=== PATIENT | female | born 1960 | race African-American/Black ===

== ENCOUNTER 2021-02-26 21:13 | Emergency (ER) | payer OTHER ==
[~2021-02-26] VITALS: Ht 162.6 cm; Wt 61.2 kg
[2021-02-26 22:07] LABS: Basophils # (auto) 0 10 ^3/uL (0-0.2); Basophils % (auto) 0.7 % (0.0-2.0); Eosinophils # (auto) 0.1 10 ^3/uL (0-0.8); Eosinophils % (auto) 1.3 % (0.0-7.0); Hematocrit 36.3 % (36.0-46.0); Hemoglobin 12.6 g/dL (12.2-16.2); Lymphocytes # (auto) 2.1 10 ^3/uL (0.4-5.4); Lymphocytes % (auto) 32.4 % (10.0-50.0); Mean Corpuscular Hemoglobin 32.2 pg (28.0-32.0); Mean Corpuscular Hgb Conc. 34.6 g/dL (32.0-36.0); Monocytes # (auto) 0.6 10 ^3/uL (0-1.3); Monocytes % (auto) 8.6 % (0.0-12.0); Neutrophils # (auto) 3.8 10 ^3/uL (1.6-8.6); Nucleated Red Blood Cells % 0.2 %; Platelet Count (auto) 403 10^3/uL (140-450); Red Blood Cells 3.91 10^6/uL (4.0-5.20); Red Cell Distribution Width 13.4 % (11.8-14.3); White Blood Cell 6.6 10^3/uL (4.4-10.8)
[2021-02-26 22:22] LABS: Chloride 106 mmol/L (98-107); Potassium 3.8 mmol/L (3.5-5.1); Sodium 137 mmol/L (136-145)
[2021-02-26 22:27] LABS: Albumin 3.4 g/dL (3.4-5.0); Anion Gap 5 (5-15); BUN/Creatinine Ratio 15.6; Blood Urea Nitrogen 12 mg/dL (7-18); Calcium 9.2 mg/dL (8.5-10.1); Carbon Dioxide 26 mmol/L (21-32); GFR African American 98 mL/min; GFR Non-African American 81 mL/min; Glucose 106 mg/dL (74-106)
[2021-02-26 22:42] LABS: Alanine Aminotransferase 27 U/L (13-56); Alkaline Phosphatase 53 U/L (45-117); Aspartate Aminotransferase 19 U/L (15-37); Bilirubin, Total 0.3 mg/dL (0.2-1.0); Total Protein 7.7 g/dL (6.4-8.2)
[2021-02-27 03:48] VITALS: BP 140/71
== END 2021-02-27 04:35 | disposition home or self-care (01) ==
LOC: EDBD 21:13 → ER 21:19
DX: S92.122A Displaced fracture of body of left talus, initial encounter for closed fracture (principal); R55 Syncope and collapse; Z20.822 Contact with and (suspected) exposure to COVID-19; X50.1XXA Overexertion from prolonged static or awkward postures, initial encounter; Y93.89 Activity, other specified; Y92.89 Other specified places as the place of occurrence of the external cause; Y99.8 Other external cause status
CPT/HCPCS: 29515; 36415; 71045; 73610; 80053; 83735; 83880; 84484; 85025; 87426; 93005

== ENCOUNTER 2024-01-19 11:06 | Inpatient (IN) | payer OTHER ==
[2024-01-19] VITALS (18 sets, daily range): BP systolic 120–166; BP diastolic 62–88; PULSE 52–106; RESP 12–20; TEMP 97.8–98.4; O2SAT 90–99
[~2024-01-19] VITALS: Ht 167.6 cm; Wt 66.5 kg
[2024-01-19] MEDS: MORPHINE SULFATE 4 MG/ML SYR/VIAL IV ONE (11:30)
[2024-01-19] MEDS: ONDANSETRON HCL 4 MG/2 ML VIAL IV ONE ×2 (11:30→17:38)
[2024-01-19] MEDS: LIDOCAINE 2%HCL (LOCAL ANESTH.) INJ 20ML MDV ONE (11:31)
[2024-01-19] MEDS: IODIXANOL 320MG/ML 100ML BTL IV ONE ×2 (11:31→12:07)
[2024-01-19] MEDS: MORPHINE SULFATE 4 MG/ML SYR/VIAL ONE (11:32)
[2024-01-19] MEDS: ONDANSETRON HCL 4 MG/2 ML VIAL ONE (11:32)
[2024-01-19] MEDS: ASPirin 81 mg TAB PO ONE (11:45)
[2024-01-19] MEDS: VERAPAMIL 2.5MG/ML INJ 2ML VIAL IV ONE (11:47)
[2024-01-19] MEDS: HEPARIN SODIUM (PORCINE) 5000 UNITS/ML 1ML VIAL ONE (11:47)
[2024-01-19] MEDS: ANGIOMAX 250 MG VIAL IV ONE (11:47)
[2024-01-19] MEDS: fentaNYL CITRATE 100 MCG/2 ML VL ONE (11:48)
[2024-01-19] MEDS: SODIUM CHL 0.9% 50 ML ONE (11:48)
[2024-01-19] MEDS: NITROGLYCERIN 50MG/250ML 250 ML IV ONE (11:48)
[2024-01-19] MEDS: MIDAZOLAM HCL 2MG/2ML 2ml VIAL (1mg/ml) ONE (11:48)
[2024-01-19 12:10] LABS: Basophils # (auto) 0.1 10 ^3/uL (0-0.2); Eosinophils # (auto) 0.1 10 ^3/uL (0-0.8); Hemoglobin 13.3 g/dL (12.2-16.2); Lymphocytes # (auto) 3.1 10 ^3/uL (0.4-5.4); Mean Corpuscular Hgb Conc. 33.6 g/dL (32.0-36.0); Monocytes # (auto) 0.7 10 ^3/uL (0-1.3)
[2024-01-19] MEDS: TICAGRELOR 90 MG TAB ONE (12:12)
[2024-01-19 12:16] LABS: Eosinophils % (auto) 0.8 % (0.0-7.0); Hematocrit 39.7 % (36.0-46.0); Lymphocytes % (auto) 29.8 % (10.0-50.0); Mean Corpuscular Hemoglobin 31.2 pg (28.0-32.0); Mean Corpuscular Volume 93.1 fL (80.0-100.0); Monocytes % (auto) 6.9 % (0.0-12.0); Neutrophils # (auto) 6.3 10 ^3/uL (1.6-8.6); Neutrophils % (auto) 61.5 % (37.0-80.0); Red Blood Cells 4.26 10^6/uL (4.0-5.20); Red Cell Distribution Width 13.3 % (11.8-14.3); White Blood Cell 10.3 10^3/uL (4.4-10.8)
[2024-01-19 12:22] LABS: INR 1.05 (0.9-1.15); Partial Thromboplastin Time 24.5 SEC (24.5-34.5); Prothrombin Time 11.1 sec (9.3-11.8)
[2024-01-19 12:26] LABS: Triglycerides 124 mg/dL (< 150)
[2024-01-19 12:27] LABS: LDL Cholesterol 130 mg/dL (< 100)
[2024-01-19 12:28] LABS: Cholesterol 211 mg/dL (< 200); HDL Cholesterol 55 mg/dL (40-59)
[2024-01-19] MEDS: NITROGLYCERIN 0.4 MG SL TAB SL PRN (13:15)
[2024-01-19] MEDS: NITROGLYCERIN 0.4 MG SL TAB SL ONE (13:25)
[2024-01-19] MEDS: MORPHINE SULFATE INJ 2 MG/ml SYRG ONE (13:28)
[2024-01-19] MEDS: MORPHINE SULFATE 4 MG/ML SYR/VIAL IV PRN ×2 (13:38→13:45)
[2024-01-19 15:51] LABS: Alanine Aminotransferase 42 U/L (7-40); Albumin 4.2 g/dL (3.2-4.8); Alkaline Phosphatase 65 U/L (46-116); Anion Gap 9 (5-15); Aspartate Aminotransferase 42 U/L (13-40); BUN/Creatinine Ratio 11.4 (10.0-20.0); Bilirubin, Total 0.4 mg/dL (0.2-1.0); Blood Urea Nitrogen 10 mg/dL (9-23); Calcium 10.5 mg/dL (8.7-10.4); Carbon Dioxide 21 mmol/L (20-30); Chloride 109 mmol/L (98-107); Glucose 150 mg/dL (74-106); Magnesium 1.9 mg/dL (1.6-2.6); Potassium 3.9 mmol/L (3.5-5.1); Sodium 139 mmol/L (136-145); Total Protein 7.4 g/dL (5.7-8.2)
[2024-01-19] MEDS: hydrALAZINE HCL 20 MG/ML VL IV PRN (18:58)
[2024-01-19] MEDS: SODIUM CHLORIDE 0.9% 1,000 ML IV SCH (20:32)
[2024-01-19] MEDS: CARVEDILOL 3.125 MG TAB PO SCH (21:02)
[2024-01-19] MEDS: ATORVASTATIN 20 MG TAB PO SCH (21:02)
[2024-01-19] MEDS: ACETAMINOPHEN 325 MG TAB PO PRN (21:03)
[2024-01-19] MEDS: TICAGRELOR 90 MG TAB PO SCH (21:03)
[2024-01-20] VITALS (21 sets, daily range): BP systolic 133–167; BP diastolic 70–90; PULSE 69–124; RESP 10–30; TEMP 97.7–99; O2SAT 92–100
[2024-01-20 05:12] LABS: Basophils # (auto) 0 10 ^3/uL (0-0.2); Basophils % (auto) 0.3 % (0.0-2.0); Eosinophils # (auto) 0 10 ^3/uL (0-0.8); Eosinophils % (auto) 0.1 % (0.0-7.0); Hematocrit 42.9 % (36.0-46.0); Hemoglobin 13.9 g/dL (12.2-16.2); Lymphocytes # (auto) 1.5 10 ^3/uL (0.4-5.4); Lymphocytes % (auto) 13.2 % (10.0-50.0); Mean Corpuscular Hemoglobin 30.5 pg (28.0-32.0); Mean Corpuscular Hgb Conc. 32.4 g/dL (32.0-36.0); Mean Corpuscular Volume 94.1 fL (80.0-100.0); Monocytes # (auto) 1.2 10 ^3/uL (0-1.3); Monocytes % (auto) 10.7 % (0.0-12.0); Neutrophils # (auto) 8.5 10 ^3/uL (1.6-8.6); Neutrophils % (auto) 75.7 % (37.0-80.0); Nucleated Red Blood Cells % 0.1 %; Red Blood Cells 4.56 10^6/uL (4.0-5.20); Red Cell Distribution Width 13.6 % (11.8-14.3); White Blood Cell 11.3 10^3/uL (4.4-10.8)
[2024-01-20 05:21] LABS: Alanine Aminotransferase 42 U/L (7-40); Alkaline Phosphatase 64 U/L (46-116); Anion Gap 8 (5-15); BUN/Creatinine Ratio 10.8 (10.0-20.0); Blood Urea Nitrogen 9 mg/dL (9-23); Calcium 10.3 mg/dL (8.5-10.1); Carbon Dioxide 24 mmol/L (20-30); Chloride 106 mmol/L (98-107); Glucose 98 mg/dL (74-106); Potassium 4.3 mmol/L (3.5-5.1); Sodium 138 mmol/L (136-145)
[2024-01-20 05:22] LABS: Aspartate Aminotransferase 125 U/L (13-40); Bilirubin, Total 0.5 mg/dL (0.2-1.0); Total Protein 7.4 g/dL (5.7-8.2)
[2024-01-20] MEDS: ENALAPRIL MALEATE 2.5 MG TAB PO SCH (09:09)
[2024-01-20] MEDS: ASPirin 81 mg TAB PO SCH (09:11)
[2024-01-20 11:43] LABS: Urine Bacteria None Seen /hpf (None Seen)
[2024-01-20 12:06] LABS: Amphetamine Screen, Urine Neg (NEGATIVE); Barbiturate Scree,Urine Neg (NEGATIVE); Benzodiazephine Screen, Urine Pos (NEGATIVE); Cocaine Screen, Urine Neg (NEGATIVE)
[2024-01-20 12:07] LABS: Cannabinoid Screen, Urine Neg (NEGATIVE); Opiate Scree,Urine Pos (NEGATIVE); Phencyclidine Screen, Urine Neg (NEGATIVE)
[2024-01-20] MEDS ORDERED: SENNA 8.6 MG TAB PO PRN (12:15)
[2024-01-20 12:20] LABS: Urine Blood Negative /uL (Negative); Urine Clarity Clear (Clear); Urine Color Light-Yellow (Yellow); Urine Protein, UAD Negative (Negative); Urine Specific Gravity 1.025 (1.001-1.035); Urine Urobilinogen Normal (Negative); Urine WBC 4 /hpf (0 - 5); Urine pH 5.5 (5.0-9.0)
[2024-01-20] MEDS: ONDANSETRON HCL 4 MG/2 ML VIAL IV PRN (12:51)
[2024-01-20] MEDS: DOCUSATE SOD 100 MG CAP PO PRN (13:55)
[2024-01-20] MEDS: PANTOPRAZOLE 40 MG TAB PO ONE (13:55)
[2024-01-20] MEDS: HYDROcodone-ACET 5/325MG TAB ONE (21:41)
[2024-01-20] MEDS: HYDROcodone-ACET 5/325MG TAB PO PRN (22:21)
[2024-01-21] VITALS (9 sets, daily range): BP systolic 111–159; BP diastolic 61–89; PULSE 81–111; RESP 16–25; TEMP 97.8–98.9; O2SAT 94–98
[2024-01-21 06:49] LABS: Basophils # (auto) 0 10 ^3/uL (0-0.2); Basophils % (auto) 0.2 % (0.0-2.0); Eosinophils # (auto) 0 10 ^3/uL (0-0.8); Eosinophils % (auto) 0.2 % (0.0-7.0); Hematocrit 37.7 % (36.0-46.0); Hemoglobin 12.6 g/dL (12.2-16.2); Lymphocytes # (auto) 1.5 10 ^3/uL (0.4-5.4); Lymphocytes % (auto) 14.3 % (10.0-50.0); Mean Corpuscular Hemoglobin 31.3 pg (28.0-32.0); Mean Corpuscular Hgb Conc. 33.3 g/dL (32.0-36.0); Mean Corpuscular Volume 94.2 fL (80.0-100.0); Monocytes # (auto) 1.3 10 ^3/uL (0-1.3); Monocytes % (auto) 11.8 % (0.0-12.0); Neutrophils # (auto) 7.9 10 ^3/uL (1.6-8.6); Neutrophils % (auto) 73.5 % (37.0-80.0); Nucleated Red Blood Cells % 0.1 %; Red Blood Cells 4.01 10^6/uL (4.0-5.20); Red Cell Distribution Width 13.5 % (11.8-14.3); White Blood Cell 10.8 10^3/uL (4.4-10.8)
[2024-01-21 07:25] LABS: Alanine Aminotransferase 33 U/L (7-40); Alkaline Phosphatase 59 U/L (46-116); Anion Gap 7 (5-15); BUN/Creatinine Ratio 11.3 (10.0-20.0); Blood Urea Nitrogen 9 mg/dL (9-23); Calcium 10.2 mg/dL (8.5-10.1); Carbon Dioxide 24 mmol/L (20-30); Chloride 106 mmol/L (98-107); Glucose 107 mg/dL (74-106); Potassium 3.7 mmol/L (3.5-5.1); Sodium 137 mmol/L (136-145)
[2024-01-21 07:26] LABS: Albumin 3.9 g/dL (3.2-4.8); Aspartate Aminotransferase 70 U/L (13-40); Bilirubin, Total 0.9 mg/dL (0.2-1.0)
[2024-01-21] MEDS: ENALAPRIL MALEATE 2.5 MG TAB PO SCH (09:03)
[2024-01-21] MEDS ORDERED: ATOR20TA50 PO (10:59)
[2024-01-21] MEDS ORDERED: ENAL1TAB42 PO (10:59)
[2024-01-21] MEDS ORDERED: CARV-214 PO (10:59)
[2024-01-21] MEDS ORDERED: TICA90TA PO (10:59)
[2024-01-21] MEDS ORDERED: ASPI-325 PO (10:59)
[2024-01-21] MEDS: KETOROLAC TROMETH 30 MG/ML 1ML VIAL IV ONE (11:39)
== END 2024-01-21 19:07 | disposition home or self-care (01) | DRG 322 ==
LOC: ER 11:06 → EDBD 11:06 → TELE 11:28 → DOU IN ICU 20:17 → TELE-EAST 01-21 03:27
PROVIDERS: ADMIT Internal Medicine; ATTEND Internal Medicine
PROC: 027034Z Dilation of Coronary Artery, One Artery with Drug-eluting Intraluminal Device, Percutaneous Approach (ICD-10-PCS; principal; 2024-01-19)
PROC: 4A023N7 Measurement of Cardiac Sampling and Pressure, Left Heart, Percutaneous Approach (ICD-10-PCS; 2024-01-19)
PROC: B211YZZ Fluoroscopy of Multiple Coronary Arteries using Other Contrast (ICD-10-PCS; 2024-01-19)
PROC: B240ZZ3 Ultrasonography of Single Coronary Artery, Intravascular (ICD-10-PCS; 2024-01-19)
DX: I21.09 ST elevation (STEMI) myocardial infarction involving other coronary artery of anterior wall (principal); K59.00 Constipation, unspecified; I10 Essential (primary) hypertension; I21.19 ST elevation (STEMI) myocardial infarction involving other coronary artery of inferior wall; E78.5 Hyperlipidemia, unspecified; E66.9 Obesity, unspecified; R74.01 Elevation of levels of liver transaminase levels; Z79.899 Other long term (current) drug therapy; Z79.82 Long term (current) use of aspirin; Z68.23 Body mass index [BMI] 23.0-23.9, adult; E83.52 Hypercalcemia
CPT/HCPCS: 36415; 71045; 80053; 80061; 80307; 81001; 83036; 83735; 84443; 84484; 85025; 85610; 85730; 86850; 86900; 86901; 87081; 92941; 92978; 93005; 93306; 93458; 96374; 96375; 99152; 99291; C1874; G0378; J1885; J2250; J2405; Q9967